=== PATIENT | female | born 1965 | race Caucasian/White ===

== ENCOUNTER 2019-02-23 06:00 | Outpatient (RCR) | payer OTHER, MEDICARE, SELFPAY | END 2019-03-25 00:01 | LOC: SPT 06:00 | PROVIDERS: Family Provider Family Medicine; Visit Provider Family Medicine | DX: M25.561 Pain in right knee (principal) | CPT/HCPCS: 97110 ×3 ==

== ENCOUNTER 2019-03-26 06:00 | Outpatient (RCR) | payer OTHER, MEDICARE, SELFPAY | END 2019-04-25 23:59 | disposition home or self-care (01) | LOC: SPT 06:00 | PROVIDERS: Family Provider Family Medicine; Visit Provider Family Medicine | DX: M25.561 Pain in right knee (principal) | CPT/HCPCS: 97110 ==

== ENCOUNTER 2019-04-26 06:00 | Outpatient (RCR) | payer MEDICARE, OTHER, SELFPAY | END 2019-05-24 23:59 | disposition home or self-care (01) | LOC: SPT 06:00 | PROVIDERS: Family Provider Family Medicine; Visit Provider Family Medicine | DX: Z01.89 Encounter for other specified special examinations (principal) ==

== ENCOUNTER 2019-05-21 11:26 | Outpatient (CLI) | payer OTHER, MEDICARE, SELFPAY ==
--- NOTE | 2019-05-21 11:27 | MM_ITS ---
WS: [id number] DIAGNOSTIC RIGHT DIGITAL MAMMOGRAM WITH CAD RIGHT breast ultrasound, limited HISTORY: RT BREAST LUMP COMPARISON: 11/12/2018 and 03/06/2016 Technique: CC, MLO and ML views. Spot compression view RIGHT CC. Breast composition: There are scattered areas of fibroglandular density. In the area the spot compre ssion view there are several partially calcified nodules consistent with oil cysts. These are very be nign. No suspicious mass. The palpable marker is just anterior to the oil cysts. Ultrasound to follow . RIGHT breast ultrasound. There are multiple hypoechoic areas in the RIGHT breast at 3:00, 7 cm from the nipple. These correspo nd to the oil cysts seen on the recent mammogram. These are all very similar in appearance and more identified by ultrasound than mammographically. These cysts were also identified on 11/12/2018. MM/[place] [id number] IMPRESSION: BI-RADS: 2-Benign FOLLOW UP: See Report 1. Return to annual screening October 2019. 2. Palpable area, mammographic and ultrasound findings correspond to benign oi l cysts. Probably due to prior trauma.
== END 2019-05-21 11:27 | disposition home or self-care (01) ==
LOC: RADSHAW 11:26
PROVIDERS: Family Provider Family Medicine; PCP Family Medicine; Visit Provider Obstetrics & Gynecology
DX: N63.10 Unspecified lump in the right breast, unspecified quadrant (principal)
CPT/HCPCS: 76642; 77065

== ENCOUNTER 2019-06-01 21:55 | Outpatient (CLI) | payer OTHER, MEDICARE, SELFPAY ==
--- NOTE | 2019-06-01 | XRR_ITS ---
PROCEDURE INFORMATION: Exam: XR Chest, 2 Views Exam date and time: 06/01/2019 11:48 PM Age: 53 years old Clinical indication: Screening exam; Other screening; Additional info: Radon exposure TECHNIQUE: Imaging protocol: XR of the chest Views: 2 views. COMPARISON: [facility] Chest 1 view 09/11/2018 10:37 AM FINDINGS: Lungs: Unremarkable. No consolidation. Pleural space: Unremarkable. No pleural effusion. No pneumothorax. Heart/Mediastinum: Unremarkable. No cardiomegaly. Bones/joints: Unremarkable. XR/XR chest 2V* [id number] IMPRESSION: No acute findings.
== END 2019-06-01 21:56 | disposition home or self-care (01) ==
PROVIDERS: Family Provider Family Medicine; PCP Family Medicine; Visit Provider Family Medicine
DX: Z77.123 Contact with and (suspected) exposure to radon and other naturally occurring radiation (principal)
CPT/HCPCS: 71046

== ENCOUNTER → 2019-09-29 15:30 | Outpatient (BNVA) | payer OTHER, MEDICARE, SELFPAY | PROVIDERS: Family Provider Family Medicine; PCP Family Medicine; Referring Provider Family Medicine; Visit Provider Podiatrist Foot & Ankle Surgery | DX: M79.671 Pain in right foot (principal); M77.31 Calcaneal spur, right foot; M19.071 Primary osteoarthritis, right ankle and foot | CPT/HCPCS: 73630 ==

== ENCOUNTER 2019-10-16 15:59 | Outpatient (CLI) | payer OTHER, MEDICARE, SELFPAY ==
--- NOTE | 2019-10-16 15:45 | US_ITS ---
WS: [id number] Subcutaneous ultrasound of the tissue between the right third and fourth metatarsals, 10/16/2019 Clinical Data: Rule out possible Flores's neuroma right 3rd interspace Comparison: None. Findings: The third and fourth metatarsal heads are well visualized. There is a ill-defined soft tissue density measuring 0.376 x 0.47 cm. Although this could represent a Flores's neuroma. This is a nonspecific f inding. US/ soft tissue/extremity [id number] Impression: Ill-defined soft tissue nodule between the heads of the right third and fourth metatarsal.
== END 2019-10-16 16:00 | disposition home or self-care (01) ==
PROVIDERS: Family Provider Family Medicine; PCP Family Medicine; Visit Provider Podiatrist Foot & Ankle Surgery
DX: G57.61 Lesion of plantar nerve, right lower limb (principal)
CPT/HCPCS: 76882

== ENCOUNTER 2021-12-22 13:39 | Outpatient (CLI) | payer OTHER, MEDICARE, SELFPAY ==
--- NOTE | 2021-12-22 13:47 | MM_ITS ---
WS: [id number] BILATERAL 3D TOMOSYNTHESIS DIGITAL SCREENING MAMMOGRAPHY WITH CAD CLINICAL INFORMATION: SCREENING HISTORY: Screening mammogram. No current complaints. COMPARISON: TECHNIQUE: Bilateral CC and MLO views. FINDINGS: Scattered fibroglandular densities bilaterally. No suspicious focal mass, asymmetry, calcifications, or architectural distortion. No evidence of malignancy. MM/[place] [id number] IMPRESSION: BI-RADS: 1-Negative FOLLOW UP: 1 Year Follow-up Recommend return to annual screening mammography.
== END 2021-12-22 13:40 | disposition home or self-care (01) ==
PROVIDERS: PCP Family Medicine; Visit Provider Family Medicine
DX: Z12.31 Encounter for screening mammogram for malignant neoplasm of breast (principal)
CPT/HCPCS: 77063; 77067

== ENCOUNTER → 2023-07-27 09:17 | Outpatient (BNVA) | payer OTHER, MEDICARE, SELFPAY | PROVIDERS: PCP Family Medicine; Referring Provider Family Medicine; Visit Provider Physician Assistant | DX: S60.552A Superficial foreign body of left hand, initial encounter; V89.2XXA Person injured in unspecified motor-vehicle accident, traffic, initial encounter; W25.XXXA Contact with sharp glass, initial encounter; W45.8XXA Other foreign body or object entering through skin, initial encounter | CPT/HCPCS: 73130 ==

== ENCOUNTER → 2023-11-01 13:01 | Day surgery (SDC) | payer OTHER, MEDICARE, SELFPAY ==
[2023-11-01] VITALS (9 sets, daily range): BP systolic 133–176; BP diastolic 78–119; PULSE 49–76; RESP 16–17; TEMP 36.2–36.6; O2SAT 92–98; BMI 46.0
--- NOTE | 2023-11-01 | XR_ITS ---
WS: [id number] C-ARM RADIOGRAPHS LEFT HAND; 2 IMAGES HISTORY: KARINE PICS COMPARISON: 07/27/2023 Intraoperative imaging during surgical procedure. No history provided of the surgical procedure Forceps are marking the space between the fourth and fifth metacarpal heads. On a prior study there m ay've been a foreign body or calcification in at this location. XR/XR hand LT 2V [id number] IMPRESSION: Intraoperative imaging during procedure of the LEFT hand.
[2023-11-01] MEDS: sodium chloride 0.9% 1,000 ML 30 ML IV (13:38)
[2023-11-01] MEDS: ketorolac 30 mg/mL INJ IVP (13:39)
[2023-11-01] MEDS: acetaminophen 1,000 MG/100 ML PIGGYBACK 400 MG IV (13:40)
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
[2023-11-01] MEDS: ceFAZolin 3,000 MG in sodium chloride 0.9% (plus) 100 ML 200 MG IV (16:17)
[2023-11-01] MEDS: sodium bicarbonate 4.2% 0.5 mEq/mL SDV 5mL 2.5 MEQ XX (16:24)
[2023-11-01] MEDS: lidocaine 1% INJ 10 mL (per mL) 5 ML INJECTION (16:26)
--- NOTE | 2023-11-01 17:24 | P.BOP_ITS ---
Date of Procedure: 11/01/2023 Surgeon: Albino Gimenez DO Transmission And Coordination Engineer(s): None Procedure(s) performed: Left hand irrigation and debridement (3 cm x 2 cm x 0.5 cm & 2 cm x 1 cm x 0.5 cm Left hand foreign bodies/scar tissue removal x 2 (left ring finger and left middle finger dorsal MPs) Findings of the procedure(s): Patient was found to have thickened scar tissue and possibly foreign bodies embedded within the scar tissue over the dorsal MCP joint of the ring and middle fingers. This thickened tissue and scar tissue was excised its entirety with no evidence of sharp or hard foreign body prominences residually left within the ring and middle fingers these were all excised in entirety underwent I&D of this and tolerated procedure without issues or complications. Patient taken back in stable condition Estimated blood loss: 10 mL Specimen(s) removed: Foreign body/scar removed of the ring and middle finger Post-operative diagnosis: Left hand foreign bodies/scar tissue
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
--- NOTE | 2023-11-01 18:45 | ANE.PACU2 ---
Inpatient post-anesthesia follow up: Airway intact: Yes Vital signs: Temperature 97.5 F Pulse Rate 53 Respiratory Rate 16 Blood Pressure 136/83 Pulse Oximetry 96 Oxygen Delivery Me thod Room Air Oxygen Flow Rate 8 Fraction of Inspir ed Oxygen Hydration adequate: Yes Nausea and vomiting: No Pain level: 1 Mental status: Baseline
== END | disposition home or self-care (01) ==
PROVIDERS: PCP Family Medicine; Visit Provider Student in an Organized Health Care Education/Training Program
PROC: (CPT 11426; principal; 2023-11-01 14:00)
PROC: (CPT 11426; 2023-11-01 14:00)
DX: M79.5 Residual foreign body in soft tissue (principal); I10 Essential (primary) hypertension; E66.01 Morbid (severe) obesity due to excess calories; Z68.42 Body mass index [BMI] 45.0-49.9, adult; Z79.82 Long term (current) use of aspirin; Z86.718 Personal history of other venous thrombosis and embolism
CPT/HCPCS: 11426; 12042; 73120; 76000; 88300; J0131; J0690; J1885; J2405; J2704; J3010; J3490; J7030

== ENCOUNTER 2023-11-01 22:59 | Emergency (ER) | payer OTHER, MEDICARE, SELFPAY ==
[2023-11-01 23:02] VITALS: BP 153/90; PULSE 62; RESP 16; TEMP 36.3; O2SAT 96
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
[2023-11-01 23:26] VITALS: BP 155/101; PULSE 65
[2023-11-02 00:28] VITALS: BP 151/96
== END 2023-11-01 23:58 | disposition home or self-care (01) ==
PROVIDERS: Emergency Provider Emergency Medicine; PCP Family Medicine
DX: L76.22 Postprocedural hemorrhage of skin and subcutaneous tissue following other procedure (principal); Z79.82 Long term (current) use of aspirin; I10 Essential (primary) hypertension
CPT/HCPCS: 99282; A6446

== ENCOUNTER → 2023-12-18 09:07 | Outpatient (BNVA) | payer OTHER, MEDICARE, SELFPAY | PROVIDERS: PCP Family Medicine; Visit Provider Student in an Organized Health Care Education/Training Program | DX: M17.0 Bilateral primary osteoarthritis of knee | CPT/HCPCS: 73560; 73565 ==

== ENCOUNTER 2024-08-11 07:54 | Outpatient (CLI) | payer OTHER, MEDICARE, SELFPAY ==
--- NOTE | 2024-08-11 | MM_ITS ---
WS: [id number] BILATERAL SCREENING DIGITAL TOMOSYNTHESIS MAMMOGRAM WITH CAD HISTORY: ANNUAL SCREENING COMPARISON: 12/22/2021, 05/21/2019 Bilateral CC and MLO views with tomosynthesis and synthetic mammography submitted. Computer aided detection analyzed. Breast composition: There are scattered areas of fibroglandular density. No suspicious masses, microcalcifications or architectural distortion. Stable mass in the medial posterior RIGHT breast. MM/MM scr BI tomosynthesis [id number] IMPRESSION: BI-RADS: 2 - Benign. FOLLOW UP: 1 Year Follow-up
== END 2024-08-11 07:55 | disposition home or self-care (01) ==
LOC: RAD 07:56
PROVIDERS: PCP Family Medicine; Visit Provider Family Medicine
DX: Z12.31 Encounter for screening mammogram for malignant neoplasm of breast (principal); R92.323 Mammographic fibroglandular density, bilateral breasts; N63.10 Unspecified lump in the right breast, unspecified quadrant
CPT/HCPCS: 77063; 77067

== ENCOUNTER 2025-02-23 05:00 | Outpatient (RCR) | payer OTHER, MEDICARE, SELFPAY | END 2025-03-25 23:59 | disposition home or self-care (01) | LOC: SPT 05:00 | PROVIDERS: PCP Family Medicine; Visit Provider Anesthesiology | DX: M51.17 Intervertebral disc disorders with radiculopathy, lumbosacral region (principal); M47.816 Spondylosis without myelopathy or radiculopathy, lumbar region | CPT/HCPCS: 97110; 97161 ==